=== PATIENT | female | born 1970 | race Two or more races ===

== ENCOUNTER 2021-09-14 19:00 | Emergency (ER) | payer SELFPAY ==
[~2021-09-14] VITALS: Ht 154.9 cm; Wt 62.1 kg
[2021-09-14 19:15] VITALS: BP 135/83
[2021-09-14] MEDS ORDERED: predniSONE 20 MG TABLET PO ONE (19:30)
--- NOTE | 2021-09-14 19:45 | NUR ---
PATIENT REFUSING EKG
[2021-09-14] MEDS: IPRATROPIUM NEB FS 0.5 MG/2.5 ML AMPUL.NEB NEB ONE ×2 (19:54→20:02)
[2021-09-14] MEDS: ALBUTEROL FS 2.5 MG/3 ML VIAL.NEB NEB ONE ×2 (19:54→20:01)
[2021-09-14] MEDS ORDERED: IPRATROPIUM NEB FS 0.5 MG/2.5 ML AMPUL.NEB ONE (19:55)
[2021-09-14] MEDS ORDERED: ALBUTEROL FS 2.5 MG/3 ML VIAL.NEB ONE (19:55)
[2021-09-14] MEDS ORDERED: PRED20TA PO (20:02)
[2021-09-14] MEDS ORDERED: ALBU18HF2 INH (20:02)
--- NOTE | 2021-09-14 20:10 | NUR ---
Patient does not wish to proceed with medical care recommended by Maine Claros NP. Patient given information related to possible complications, up to and including , which could occur as a result of leaving the hospital at this time. Patient verbalizes understanding of risks involved due to leaving against medical advice. Patient has signed AMA form.
[2021-09-14] MEDS ORDERED: predniSONE 20 MG TABLET ONE (20:14)
== END 2021-09-14 21:13 | disposition home or self-care (01) ==
LOC: ER 19:07
DX: J45.901 Unspecified asthma with (acute) exacerbation (principal); F17.200 Nicotine dependence, unspecified, uncomplicated; Z60.2 Problems related to living alone; Z79.899 Other long term (current) drug therapy